=== PATIENT | female | born 2000 | race African-American/Black ===

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

== ENCOUNTER 2024-02-25 00:35 | Emergency (ER) | payer SELFPAY ==
[2024-02-25] MEDS: Ketorolac 30 MG/ML SDV IVPUSH ONE (00:51)
[2024-02-25] MEDS: Acetaminophen 500 MG Tab PO ONE (00:52)
== END 2024-02-25 02:13 | disposition home or self-care (01) ==
LOC: MW.ED 00:35
DX: S83.92XA Sprain of unspecified site of left knee, initial encounter (principal); W01.0XXA Fall on same level from slipping, tripping and stumbling without subsequent striking against object, initial encounter
CPT/HCPCS: 36415; 73562; 84703; 96374; 99284; A9270; J1885

== ENCOUNTER 2024-08-09 12:57 | Emergency (ER) | payer SELFPAY ==
[2024-08-09 13:15] LABS: BASOPHILS ABSOLUTE AUTO 0.01 K/uL (0.00-0.20); BASOPHILS PERCENT AUTO 0.1 % (0.0-1.0); EOSINOPHILS ABSOLUTE AUTO 0.25 K/uL (0.00-0.45); EOSINOPHILS PERCENT AUTO 3.1 % (0.0-6.0); HEMATOCRIT 35.4 % (37.0-47.0); HEMOGLOBIN 11.2 g/dL (12.0-16.0); IMMATURE GRAN ABSOLUTE AUTO 0.03 K/uL (0.00-0.05); IMMATURE GRAN PERCENT AUTO 0.4 % (0.0-0.4); LYMPHOCYTES ABSOLUTE AUTO 1.63 K/uL (1.00-4.80); LYMPHOCYTES PERCENT AUTO 20.3 % (24.0-44.0); MEAN CORPUSCULAR HEMOGLOBIN 25.5 pg (28.0-32.0); MEAN CORPUSCULAR HGB CONC 31.6 g/dL (32.0-36.0); MEAN CORPUSCULAR VOLUME 80.6 fL (83.0-99.0); MEAN PLATELET VOLUME 8.8 fL (9.4-12.3); MONOCYTES ABSOLUTE AUTO 0.31 K/uL (0.00-0.80); MONOCYTES PERCENT AUTO 3.9 % (0.0-8.0); NEUTROPHILS ABSOLUTE AUTO 5.78 K/uL (1.80-7.70); NEUTROPHILS PERCENT AUTO 72.2 % (41.0-71.0); PLATELET COUNT,PLT 328 K/uL (150-400); RED BLOOD CELL COUNT 4.39 M/uL (4.10-5.30); WHITE BLOOD CELL COUNT,WBC 8.01 K/uL (3.9-11.3)
[2024-08-09] MEDS: Sodium Chloride 0.9% 1,000 ML IV ONE (13:16)
[2024-08-09] MEDS ORDERED: LORazepam 2 MG/ML SDV IVPUSH PRN (13:16)
[2024-08-09] MEDS: Albuterol/Ipratropium 3.0-0.5 MG/3 ML Neb Soln NEB ONE (13:19)
[2024-08-09] MEDS: methylPREDNISolone Sodium Succinate 125 MG/2 ML SDV IVPUSH ONE (13:20)
[2024-08-09] MEDS: Ondansetron 4 MG/2 ML SDV IVPUSH ONE (13:20)
[2024-08-09 13:47] LABS: INR 1.01 (0.86-1.11)
[2024-08-09 13:48] LABS: A/G RATIO 0.8 (0.9-1.6); ALBUMIN 3.6 g/dL (3.4-5.0); BILIRUBIN TOTAL 0.4 mg/dL (0.2-1.0); CALCIUM 9.5 mg/dL (8.5-10.1); CARBON DIOXIDE,CO2 22.2 mmol/L (21.0-32.0); CREATININE 0.8 mg/dL (0.6-1.0); EST CRCL DRUG DOSING (CG) 99.25 mL/min; MAGNESIUM 1.8 mg/dL (1.8-2.4); POTASSIUM,K 3.5 mmol/L (3.5-5.1); PROTEIN TOTAL,TP 8.2 g/dL (6.4-8.2)
[2024-08-09] MEDS: Ketorolac 30 MG/ML SDV IVPUSH ONE (13:54)
[2024-08-09 14:02] LABS: CORONAVIRUS COVID-19 NAA NEGATIVE (NEGATIVE); INFLUENZA A NAA NEGATIVE (NEGATIVE); INFLUENZA B NAA NEGATIVE (NEGATIVE); RESPIRATORY SYNCYTIAL VIR NAA NEGATIVE (NEGATIVE)
[2024-08-09] MEDS: guaiFENesin 600 MG Tab.ER PO ONE (14:15)
[2024-08-09 14:23] LABS: PERCENT FE SATURATION 7.94 % (20-55)
[2024-08-09] MEDS: Iopamidol 755 MG/ML 500 ML Multipack Bottle IVPUSH STA (15:13)
== END 2024-08-09 15:43 | disposition home or self-care (01) ==
LOC: MW.ED 12:57
DX: J06.9 Acute upper respiratory infection, unspecified (principal); B97.89 Other viral agents as the cause of diseases classified elsewhere; D50.9 Iron deficiency anemia, unspecified; R07.81 Pleurodynia; R06.02 Shortness of breath; R00.0 Tachycardia, unspecified; R45.83 Excessive crying of child, adolescent or adult; R11.10 Vomiting, unspecified; I10 Essential (primary) hypertension; Z79.899 Other long term (current) drug therapy
CPT/HCPCS: 0241U; 36415; 71045; 71275; 80053; 83550; 83690; 83735; 83880; 84484; 84703; 85025; 85379; 85610; 93005; 96361; 96374; 96375; 99285; A9270; J1885; J2405; J2919; J7030; J7620; Q9967; 93010; 99283